=== PATIENT | male | born 1970 | race Two or more races ===

== ENCOUNTER 2022-08-07 14:28 | Emergency (ER) | payer SELFPAY ==
[~2022-08-07] VITALS: Ht 188 cm; Wt 110.0 kg
[2022-08-07 15:29] VITALS: BP 164/96
[2022-08-07] MEDS ORDERED: AZITTAB PO (16:07)
[2022-08-07] MEDS ORDERED: ACET1CAP14 PO (16:07)
[2022-08-07] MEDS ORDERED: PROM1SOL4 PO (16:07)
[2022-08-07] MEDS ORDERED: ACETAMINOPHEN 500 MG TAB PO ONE (16:15)
== END 2022-08-07 16:07 | disposition home or self-care (01) ==
LOC: ER 14:28
DX: J32.9 Chronic sinusitis, unspecified (principal); J06.9 Acute upper respiratory infection, unspecified; Z20.822 Contact with and (suspected) exposure to COVID-19
CPT/HCPCS: 36415; 71046; 87426; 87804